=== PATIENT | male | born 1995 | race Two or more races ===

== ENCOUNTER 2019-02-23 07:27 | Emergency (ER) | payer BC ==
--- NOTE | 2019-02-23 07:40 | EDM.PDOC ---
ED HPI GENERAL MEDICAL PROBLEM - General Stated Complaint: KIDNEY STONE Time Seen by Provider: 02/23/19 07:32 Source of Information: Reports: Patient History Limitations: Reports: No Limitations - History of Present Illness INITIAL COMMENTS - FREE TEXT/NARRATIVE: History of present illness: []Patient has a history of kidney stones and started having left flank pain last night he rises morning with pain over his bladder. He's been vomiting 4 times this morning and is unable to keep fluids down. Review of systems: As per history of present illness and below otherwise all systems reviewed and negative. Past medical history: As per history of present illness and as reviewed below otherwise noncontributory. Surgical history: As per history of present illness and as reviewed below otherwise noncontributory. Social history: No reported history of drug or alcohol abuse. Family history: As per history of present illness and as reviewed below otherwise noncontributory. Physical exam: General: Well developed, well nourished in NAD HEENT: Atraumatic, normocephalic, pupils reactive, negative for conjunctival pallor or scleral icterus, mucous membranes moist, throat clear, neck supple, nontender, trachea midline. Lungs: Clear to auscultation, breath sounds equal bilaterally, chest nontender. Heart: S1S2, regular, negative for clicks, rubs, or JVD. Abdomen: NABS, Soft, nondistended, nontender. Negative for masses or hepatosplenomegaly. Negative for costovertebral tenderness. Pelvis: Stable nontender. Genitourinary: Deferred. Rectal: Deferred. Extremities: Atraumatic, negative for cords or calf pain. Neurovascular unremarkable. Neuro: Awake, alert, oriented. Cranial nerves II through XII unremarkable. Cerebellum unremarkable. Motor and sensory unremarkable throughout. Exam nonfocal. Skin:warm and dry Diagnostics: CBC, chemistry, UA consistent with kidney stone, patient refuses CT scan Therapeutics: Toradol, Zofran with improvement, patient refused IV ED Course: Improved Impression: Ureterolithiasis Prescriptions: flomax, diclofenac, Zofran Plan: Take meds as directed, follow up with your primary care physician, return to ER if symptoms worsen or change. Definitive disposition and diagnosis as appropriate pending reevaluation and review of above. right flank Pain Score (Numeric/FACES): 8 - Related Data Allergies Allergy/AdvReac Type Severity Reaction Status Date / Time No Known Allergies Allergy Verified 02/23/19 07:39 Home Meds: Home Meds Albuterol Sulfate [Proair Hfa] 1 puff INH ASDIRECTED 02/23/19 [History] Diclofenac Sodium [Voltaren] 75 mg PO BIDMEALS PRN #20 tab.cr 02/23/19 [Rx] Ondansetron HCl [Zofran] 4 mg PO Q4HR #12 tablet 02/23/19 [Rx] Tamsulosin HCl [Flomax] 0.4 mg PO DAILY #14 cap.er.24h 02/23/19 [Rx] ED ROS GENERAL - Review of Systems Review Of Systems: ROS reveals no pertinent complaints other than HPI. ED EXAM, RENAL/ - Physical Exam Exam: See Below (See history of present illness) Course - Vital Signs Last Recorded V/S: Last Vital Signs Temp 95.9 F 02/23/19 07:38 Pulse 74 02/23/19 07:38 Resp 18 02/23/19 07:38 BP 159/99 H 02/23/19 07:38 Pulse Ox 96 02/23/19 07:38 - Orders/Labs/Meds Labs: Laboratory Tests 02/23/19 02/23/19 02/23/19 Range/Units 07:41 07:59 07:59 WBC 10.88 (4.0-11.0) K/uL RBC 4.99 (4.50-5.90) M/uL Hgb 14.5 (13.0-17.0) g/dL Hct 43.5 (38.0-50.0) % MCV 87.2 (80.0-98.0) fL MCH 29.1 (27.0-32.0) pg MCHC 33.3 (31.0-37.0) g/dL RDW Std Deviation 42.3 (28.0-62.0) fl RDW Coeff of Debo 13 (11.0-15.0) % Plt Count 333 (150-400) K/uL MPV 10.00 (7.40-12.00) fL Neut % (Auto) 84.3 H (48.0-80.0) % Lymph % (Auto) 12.5 L (16.0-40.0) % [place] % (Auto) 2.8 (0.0-15.0) % Eos % (Auto) 0.1 (0.0-7.0) % Baso % (Auto) 0.3 (0.0-1.5) % Neut # (Auto) 9.2 H (1.4-5.7) K/uL Lymph # (Auto) 1.4 (0.6-2.4) K/uL [place] # (Auto) 0.3 (0.0-0.8) K/uL Eos # (Auto) 0.0 (0.0-0.7) K/uL Baso # (Auto) 0.0 (0.0-0.1) K/uL Nucleated RBC % 0.0 /100WBC Nucleated RBCs # 0 K/uL Sodium 140 (136-148) mmol/L Potassium 4.3 (3.5-5.1) mmol/L Chloride 102 (98-107) mmol/L Carbon Dioxide 28.5 (21.0-32.0) mmol/L BUN 16 (7.0-18.0) mg/dL Creatinine 1.4 H (0.8-1.3) mg/dL Est Cr Clr Drug Dosing 75.41 mL/min Estimated GFR (MDRD) > 60.0 ml/min Glucose 154 H (74-106) mg/dL Calcium 9.0 (8.5-10.1) mg/dL Total Bilirubin 0.5 (0.2-1.0) mg/dL AST 15 (15-37) IU/L ALT 30 (14-63) IU/L Alkaline Phosphatase 87 (46-116) U/L Total Protein 8.4 H (6.4-8.2) g/dL Albumin 4.1 (3.4-5.0) g/dL Globulin 4.3 H (2.6-4.0) g/dL Albumin/Globulin Ratio 1.0 (0.9-1.6) Urine Color YELLOW Urine Appearance CLEAR Urine pH 6.0 (5.0-8.0) Ur Specific [place] 1.025 (1.001-1.035) Urine Protein TRACE H (NEGATIVE) mg/dL Urine Glucose (UA) NEGATIVE (NEGATIVE) mg/dL Urine Ketones NEGATIVE (NEGATIVE) mg/dL Urine Occult Blood MODERATE H (NEGATIVE) Urine Nitrite NEGATIVE (NEGATIVE) Urine Bilirubin NEGATIVE (NEGATIVE) Urine Urobilinogen 0.2 (<2.0) EU/dL Ur Leukocyte Esterase NEGATIVE (NEGATIVE) Urine RBC 10-15 (0-2/HPF) Urine WBC 0-2 (0-5/HPF) Ur Epithelial Cells FEW (NONE-FEW) Urine Bacteria RARE (NEGATIVE) Hyaline Casts RARE (0-2/LPF) Urine Mucus LIGHT (NONE-MOD) Meds: Medications Discontinued Medications Generic Name Dose Route Start Last Admin Trade Name Freq PRN Reason Stop Dose Admin Hydromorphone HCl 1 mg 02/23/19 08:11 02/23/19 08:40 Dilaudid IM 02/23/19 08:12 Not Given ONETIME ONE Sodium Chloride 1,000 mls @ 999 mls/hr 02/23/19 07:41 02/23/19 07:55 Normal Saline IV 02/23/19 08:41 Not Given .Bolus ONE Ketorolac Tromethamine 60 mg 02/23/19 07:47 02/23/19 07:52 Toradol IM 02/23/19 07:48 60 mg ONETIME ONE Administration Ondansetron HCl 4 mg 02/23/19 07:47 02/23/19 07:51 Zofran Odt PO 02/23/19 07:48 4 mg ONETIME ONE Administration Departure - Departure Time of Disposition: 08:51 Disposition: Home, Self-Care 01 Condition: Good Clinical Impression: Ureterolithiasis - Discharge Information *PRESCRIPTION DRUG MONITORING PROGRAM REVIEWED*: No *COPY OF PRESCRIPTION DRUG MONITORING REPORT IN PATIENT BRUNO: No Prescriptions: Ondansetron HCl [Zofran] 4 mg PO Q4HR #12 tablet Diclofenac Sodium [Voltaren] 75 mg PO BIDMEALS PRN #20 tab.cr PRN Reason: Pain Tamsulosin HCl [Flomax] 0.4 mg PO DAILY #14 cap.er.24h Instructions: Kidney Stones, [id number] Referrals: PCP,None [Primary Care Provider] - Forms: ED Department Discharge Additional Instructions: The following information is given to patients seen in the emergency department who are being discharged to home. This information is to outline your options for follow-up care. We provide all patients seen in our emergency department with a follow-up referral. The need for follow-up, as well as the timing and circumstances, are variable depending upon the specifics of your emergency department visit. If you don't have a primary care physician on staff, we will provide you with a referral. We always advise you to contact your personal physician following an emergency department visit to inform them of the circumstance of the visit and for follow-up with them and/or the need for any referrals to a consulting specialist. The emergency department will also refer you to a specialist when appropriate. This referral assures that you have the opportunity for follow-up care with a specialist. All of these measure are taken in an effort to provide you with optimal care, which includes your follow-up. Under all circumstances we always encourage you to contact your private physician who remains a resource for coordinating your care. When calling for follow-up care, please make the office aware that this follow-up is from your recent emergency room visit. If for any reason you are refused follow-up, please contact the [facility] at and asked to speak to the emergency department charge nurse. Take meds as directed, follow up with your primary care physician, return to ER if symptoms worsen or change. [facility] [address] [place] [id number]
[2019-02-23] MEDS ORDERED: Sodium Chloride 0.9% 2.5 ML Syringe FLUSH PRN (07:41)
[2019-02-23] MEDS ORDERED: Ketorolac 30 MG/ML SDV IVPUSH ONE (07:41)
[2019-02-23] MEDS ORDERED: Sodium Chloride 0.9% 1,000 ML IV ONE (07:41)
[2019-02-23] MEDS ORDERED: Ondansetron 4 MG/2 ML SDV IVPUSH ONE (07:41)
[2019-02-23] MEDS ORDERED: Sodium Chloride 0.9% 10 ML Syringe FLUSH PRN (07:41)
[2019-02-23] MEDS ORDERED: Ketorolac 60 MG/2 ML SDV IM ONE (07:47)
[2019-02-23] MEDS ORDERED: Ondansetron 4 MG Tab.DIS PO ONE (07:47)
[2019-02-23] MEDS ORDERED: HYDROmorphone 1 MG/ML Syringe IM ONE (08:11)
[2019-02-23 08:28] LABS: CHLORIDE,CL 102 mmol/L (98-107); SODIUM,NA 140 mmol/L (136-148)
== END 2019-02-23 09:01 | disposition home or self-care (01) ==
LOC: MW.ED 07:27
DX: N20.1 Calculus of ureter (principal)
CPT/HCPCS: 36415; 80053; 81001; 85025; 96372; 99284; A9270; J1885; 99283